=== PATIENT | male | born 1980 | race African-American/Black ===

== ENCOUNTER 2017-09-21 18:22 | Emergency (ER) | payer MEDICAID, OTHER ==
[~2017-09-21] VITALS: Ht 170.2 cm; Wt 70.3 kg
[~2017-09-21 18:22] MED LIST: AMOXICILLIN500 MG ORAL; NKM; NORCO 5-325 TA1 EACH ORAL
[2017-09-21 19:02] VITALS: BP 112/62
[2017-09-21] MEDS ORDERED: oxyCODONE HCL/Acetaminophen 5/325mg ORAL ONE (19:15)
[2017-09-21] MEDS ORDERED: Lidocaine 2% 20mg/ml/Epi 0.005mg/ml 20ml vial INJ ONE (19:15)
[2017-09-21 20:00] VITALS: BP 112/62
[2017-09-21] MEDS ORDERED: Bacitracin Oint UD TOPIC ONE (20:00)
--- NOTE | 2017-09-21 20:44 | Emergency Room Report ---
History of Present Illness General Chief Complaint: Upper Extremity Injury Source: EMS Present Illness HPI 37-year-old male presents to the emergency department complaining of laceration to the left hand x30 minutes. Patient states he sliced his hand while climbing a barbed wire fence. Pt. arrived by EMS. Patient reports 10 out of 10 in severity localized pain and bleeding. Patient does not know when his last tetanus vaccination was. Patient denies taking blood thinning medications. Patient denies inability to move his fingers, bony pain or skin color changes in the extremities. He denies hitting his head. Denies neck or back pain. Denies numbness tingling or loss of sensation or gross motor movements of the extremities, incontinence of bowel or bladder. Denies CP, Palpitations, LOC, AMS , dizziness, Changes in Vision, Sensation, paresthesias, or a sudden severe headache. Allergies: Coded Allergies: No Known Allergies (Unverified , 10/14/12) Patient History Past Medical History: see triage record Past Surgical History: none Pertinent Family History: none Reviewed Nursing Documentation: PMH: Agreed, PSxH: Agreed Nursing Documentation-PM Past Medical History: No Stated History Hx Asthma: Yes Review of Systems All Other Systems: negative except mentioned in HPI Physical Exam Vital Signs Date Time Temp Pulse Resp B/P (MAP) Pulse Ox O2 Delivery O2 Flow Rate FiO2 09/21/17 18:23 99.2 112 18 112/62 99 Room Air 99.1 Sp02 EP Interpretation: reviewed, normal General Appearance: alert, GCS 15, non-toxic, mild distress Head: normocephalic, atraumatic ENT: hearing grossly normal, normal voice Neck: full range of motion, no bony tend Respiratory: chest non-tender, lungs clear, normal breath sounds, no wheezing, speaking full sentences Cardiovascular #1: regular rate, rhythm, normal capillary refill Musculoskeletal: back normal, gait/station normal, normal range of motion - all digits of the left hand , can flex and extend against resistance, sensation is grossly intact, normal cap refill in all 4 distal digits. , tender - TTP to the lateral left hand. Neurologic: alert, oriented x3, responsive, motor strength/tone normal, sensory intact, speech normal, grossly normal Psychiatric: anxious Skin: normal color, no rash, warm/dry, well hydrated, laceration - Lateral Left Hand laceration approx 6 cm in length Procedures Laceration/Wound Repair Laceration/Wound Repair : Consent: Verbal Wound Location: upper extremity - left hand Wound's Depth, Shape: linear Wound Length (cm): 6 Wound Explored: clean Irrigated w/ Saline (ccs): 100 Anesthesia: Lidocaine w/ Epi Volume Anesthetic (ccs): 6 Wound Repaired With: sutures Suture Size/Type: 4:0 Number of Sutures: 12 Layer Closure?: No Sterile Dressing Applied?: Yes Splint Applied?: Yes Type of Splint Applied: Volar Hand Splnit Sling Applied?: Yes Patient Tolerated: Well Complications: None Medical Decision Making PA Attestation Dr. lara is my supervising Physician whom patient management has been discussed with. Diagnostic Impression: Primary Impression: Laceration ER Course 37-year-old male presents to the emergency department complaining of laceration to the left hand x30 minutes. Patient states he sliced his hand while climbing a barbed wire fence. Pt. arrived by EMS. Patient reports 10 out of 10 in severity localized pain and bleeding. Patient does not know when his last tetanus vaccination was. Patient denies taking blood thinning medications. Patient denies inability to move his fingers, bony pain or skin color changes in the extremities. He denies hitting his head. Denies neck or back pain. Denies numbness tingling or loss of sensation or gross motor movements of the extremities, incontinence of bowel or bladder. Denies CP, Palpitations, LOC, AMS , dizziness, Changes in Vision, Sensation, paresthesias, or a sudden severe headache. Ddx considered but are not limited to laceration, tendon injury, cellulitis, amputation Vital signs: are WNL, pt. is afebrile H&PE are most consistent with: Lateral Left Hand laceration approx 6 cm in length ORDERS: none required at this time, the diagnosis is clinical ED INTERVENTIONS: -Tetanus vaccine was administered as pt. vaccination status was unknown. - The wound was copiously irrigated with normal saline, and explored for foreign body for which no FB was found. - pt. is anesthetized with 2 %lidocaine w. epi. - The wound was approximated and closed using 12 interrupted 4.0 Prolene sutures. -Bacitracin and sterile dressing is applied. -Left volar Splint applied by chief technologist. Pt. remains neurovascularly intact. Discussed with patient: That we make every effort to approximate the laceration as best as we can so that scarring will be as cosmetically pleasing as possible with our limited cosmetic skill set in the Emergency dept. Regardless of our best efforts there will be scarring after laceration repair. The extent of scarring is unknown at this time. DISCHARGE: At this time pt. is stable for d/c to home. Will provide printed patient care instructions, and any necessary prescriptions. Care plan and follow up instructions have been discussed with the patient prior to discharge. Last Vital Signs Date Time Temp Pulse Resp B/P (MAP) Pulse Ox O2 Delivery O2 Flow Rate FiO2 09/21/17 19:18 99.1 09/21/17 19:02 112 18 112/62 99 Room Air Disposition: HOME, SELF-CARE Condition: Stable Scripts Trimethoprim/Sulfamethoxazole 160/800* (BACTRIM DS TABLET*) 1 Each Tablet 1 TAB ORAL TWICE A DAY for 7 Days, #14 TAB Prov: Erin Jacobs P.A. 09/21/17 Cephalexin* (KEFLEX*) 500 Mg Capsule 500 MG ORAL EVERY 12 HOURS for 7 Days, #14 CAP 0 Refills Prov: Erin Jacobs P.A. 09/21/17 Ibuprofen* (MOTRIN*) 600 Mg Tablet 600 MG ORAL THREE TIMES A DAY, #20 TAB 0 Refills Prov: Erin Jacobs P.A. 09/21/17 Hydrocodone Bit/Acetaminophen 7.5-325* (NORCO 7.5-325*) 1 Each Tablet 1 TAB ORAL Q8HR Y for For Pain, #3 TAB 0 Refills Prov: Erin Jacobs P.A. 09/21/17 Bacitracin/Polymyxin B Sulfate (BACITRACIN-POLYMYXIN OINTMENT) 28.35 Gm Oint...g. 1 APPLIC TP BID, #28.3 GM Prov: Erin Jacobs P.A. 09/21/17 Referrals: BRENDEN DUEÑAS,REFERRING (PCP) Patient Instructions: LACERATION, Extrem (Suture, Staple or Tape) Additional Instructions: Take medications as directed. SUTURES TO BE REMOVED IN 10-14 DAYS Keep Clean And Dry. Follow up with a Primary Care Provider in 3-5 days, even if your symptoms have resolved. --Please review list of primary care clinics, if you do not already have a primary care provider Return sooner to ED if new symptoms occur, or current symptoms become worse. Do not drink alcohol, drive, or operate heavy machinery while taking [place] as this may cause drowsiness. - Please note that this Emergency Department Report was dictated using [employer] technology software, occasionally this can lead to erroneous entry secondary to interpretation by the dictation equipment. Erin Jacobs Sep 21, 2017 20:44
[2017-09-21] MEDS ORDERED: BACITRACIN-P28.35 GM TP (20:46)
[2017-09-21] MEDS ORDERED: IBUPROFEN600 MG ORAL (20:46)
[2017-09-21] MEDS ORDERED: NORCO 7.5-3251 EACH ORAL (20:46)
[2017-09-21] MEDS ORDERED: CEPHALEXIN500 MG ORAL (20:46)
[2017-09-21] MEDS ORDERED: BACTRIM DS TAB1 EAC1 ORAL (20:46)
== END 2017-09-21 20:30 | disposition home or self-care (01) ==
LOC: EDUNIT# 18:22 → EDBD 18:22 → EMR 20:05
DX: S61.412A Laceration without foreign body of left hand, initial encounter (principal); J45.909 Unspecified asthma, uncomplicated; W26.8XXA Contact with other sharp object(s), not elsewhere classified, initial encounter; Y92.9 Unspecified place or not applicable
CPT/HCPCS: 12002; 29125; 99284; Z7502